=== PATIENT | male | born 1950 | race Caucasian/White ===

== ENCOUNTER → 2024-06-05 08:05 | Outpatient (REF) | payer OTHER, SELFPAY | LOC: RAD 08:05 | PROVIDERS: ATTENDING PHYSICIAN Internal Medicine Hematology & Oncology; FAMILY PHYSICIAN Family Medicine | DX: D64.9 Anemia, unspecified (principal); D69.9 Hemorrhagic condition, unspecified | CPT/HCPCS: 76700 ==

== ENCOUNTER → 2024-11-03 06:19 | Outpatient (REF) | payer OTHER, SELFPAY | LOC: RAD 06:19 | PROVIDERS: ATTENDING PHYSICIAN Family Medicine | DX: Z13.6 Encounter for screening for cardiovascular disorders (principal) | CPT/HCPCS: 76770 ==

== ENCOUNTER → 2025-07-19 09:00 | Outpatient (REF) | payer OTHER, SELFPAY | LOC: MRI 09:00 | PROVIDERS: ATTENDING PHYSICIAN Specialist; FAMILY PHYSICIAN Family Medicine | DX: G31.84 Mild cognitive impairment of uncertain or unknown etiology (principal) | CPT/HCPCS: 70553; A9575 ==